=== PATIENT | female | born 1985 | race Caucasian/White ===

== ENCOUNTER 2017-04-11 08:30 | Emergency (ER) | payer MEDICAID | END 2017-04-11 10:43 | disposition home or self-care (01) | LOC: E/R 08:30 | DX: H66.012 Acute suppurative otitis media with spontaneous rupture of ear drum, left ear (principal) | CPT/HCPCS: 99284; Z7502 ==

== ENCOUNTER 2018-10-21 16:43 | Emergency (ER) | payer MEDICAID ==
[2018-10-21] MEDS: DIPHENHYDRAMINE 25 MG CAP PO (17:41)
[2018-10-21] MEDS: ACETAMINOPHEN 500 MG TAB PO (17:42)
== END 2018-10-21 18:13 | disposition home or self-care (01) ==
LOC: FTE 16:43
DX: S80.862A Insect bite (nonvenomous), left lower leg, initial encounter (principal); W57.XXXA Bitten or stung by nonvenomous insect and other nonvenomous arthropods, initial encounter; Y92.9 Unspecified place or not applicable
CPT/HCPCS: 99283; Z7502